=== PATIENT | female | born 1960 | race Two or more races ===

== ENCOUNTER 2020-05-03 18:00 | Inpatient (IN) | payer MEDICARE, OTHER ==
[~2020-05-03] VITALS: Ht 165.1 cm; Wt 75.7 kg
[2020-05-03] MEDS ORDERED: MELO-107 MT (20:29)
[2020-05-03] MEDS ORDERED: CLON2TAB11 MT (20:29)
[2020-05-03] MEDS ORDERED: GABA-532 PO (20:29)
[2020-05-03] MEDS ORDERED: FLUC100T8 MT (20:29)
[2020-05-03] MEDS ORDERED: METH500T6 MT (20:29)
[2020-05-03] MEDS ORDERED: PREG150C46 MT (20:29)
[2020-05-03] MEDS ORDERED: IBUP-1955 MT (20:29)
[2020-05-03] MEDS ORDERED: DICL100G34 TP (20:29)
[2020-05-03] MEDS ORDERED: LORAZEPAM 0.5 MG TABLET PO PRN (20:30)
[2020-05-03] MEDS ORDERED: TEMAZEPAM 7.5 MG CAPSULE PO PRN (20:30)
[2020-05-03] MEDS ORDERED: MAG HYDROX/AL HYDROX/SIMETH 30 ML UDC PO PRN (20:30)
[2020-05-03] MEDS ORDERED: MAGNESIUM HYDROXIDE 30 ML UDC PO PRN (20:30)
[2020-05-03] MEDS ORDERED: BLOOD SUGAR DIAGNOSTIC 1 EACH STRIP IN ONE (20:30)
[2020-05-03] MEDS ORDERED: ACETAMINOPHEN 325 MG TABLET PO PRN (20:30)
[2020-05-03] MEDS ORDERED: TIZA4CAP PO (20:31)
[2020-05-03] MEDS ORDERED: DULO20CA PO (20:33)
[2020-05-03 21:00] VITALS: BP 125/70
--- NOTE | 2020-05-03 23:09 | NUR ---
ADMISSION NOTES: ADMITTED THIS 59Y/O FEMALE PATIENT AD[place] [facility] [place]ADMITTED TO [facility] 5150 HOLD DTO, PER HOLD DTO AND INCREASINGLY PARANOID THE PAST WEEK HAS BEEN LEAVING VOICE MAIL MESSAGE ON MOTHER,S PHONE THREATING AND DEMENDING MONEY MAKING COMMENTS OR YOU WILL BY THE HANDS OF ME ,,UPON FACE TO FACE ASSESSMENT PATIENT IS A&O X 3, FLAT AFFECT , BLUNTED AFFECT, GUARDED ,UNCOOPERTIVE ,ANXIOUS ,PARANOID, ANXIOUS ,DISHELVED, DEPREESED ,POOR HYGINE ,EASILY AGITATED, POOR EYE CONTACT ,DENIES SI /HI AT THIS TIME, PT. IS POOR HISTORIAN, POOR INSIGHT ,POOR JUDGEMENT , PT. REFUSED TO SIGNS ADMISSION CONSENT PAPERS, DUE TO MENTAL STATUS , PT.REFUSED SHOWER AND REFUSED CHANGE TO THE HOSPITAL GOWN, DUE TO MENTAL STATUS , PT. REFUSED FULL BODY SKIN ASSESSMENT AND PICTURES TAKEN, AND REFUSED FLU VACCINE, ENCOURAGED X3 RISKS BENEFITS EXPLINED , PT. STRONGLY REFUSED ,BOTH MD AWARE AND NOTIFIED OF THE ADMISSION, BELONGINGS CONTRABAND WERE DONE ,PT. RIGHTS DISCUSS BY [employer] ACCOUNTS SUPERVISOR , PROVIDE THE PT. WITH HANDBOOK, AND MEDICATIONS GUIDE, ENVIRONMENTAL SAFETY CHECK DONE, ENCOURAGED PT. VERBALIZED ANY FEELING CONCERN TO STAFF, ORIENT TO UNIT POLICY, NO ACUTE DISTRESS NOTED,VITAL SIGNS WNL ,DENIES ANY PAIN AT THIS TIME,WILL CONTINUE TO MONITOR FOR Q15 SAFETY AND BEHAVIOR.
[2020-05-03] MEDS ORDERED: IBUPROFEN 600 MG TABLET PO PRN (23:30)
--- NOTE | 2020-05-04 02:06 | NUR ---
RN NOTES: PT. REFUSED MRSA NARES SWAB ,REFUSED SKIN ASSESSMENT , ENCOURAGED X3 RISKS AND BENFITS EXPLINED ,PT. STRONGLY REFUSED, PT. BEHAVIOR UNCOOPRTIVE AT TIS TIME,WILL CONTIUITY WITH CARE
[2020-05-04] MEDS ORDERED: TIZANIDINE HCL 4 MG TABLET PO PRN (03:00)
[2020-05-04 08:00] VITALS: BP 91/62
[2020-05-04] MEDS ORDERED: TEMAZEPAM 15 MG CAPSULE PO PRN (08:00)
[2020-05-04 08:29] LABS: ALBUMIN 3.4 g/dL (3.4-5.0); BILIRUBIN,TOTAL 0.7 mg/dL (0.2-1.0); CALCIUM, SERUM 8.5 mg/dL (8.5-10.1); CREATININE 0.8 mg/dL (0.6-1.3); POTASSIUM 3.4 mmol/L (3.5-5.1); TOTAL PROTEIN, SERUM 6.4 g/dL (6.4-8.2)
[2020-05-04] MEDS: MELOXICAM 7.5 MG TABLET PO SCH (08:29)
[2020-05-04] MEDS: METHOCARBAMOL (500MG) 500 MG TABLET PO SCH ×4 (08:29→21:02)
[2020-05-04] MEDS: GABAPENTIN 100 MG CAPSULE PO SCH ×3 (08:29→17:23)
[2020-05-04] MEDS ORDERED: DICLOFENAC TOPICAL 100 GM GEL..GM. TP SCH ×2 (09:00)
[2020-05-04] MEDS ORDERED: POTASSIUM CHLORIDE 20 MEQ TAB.PRT.SR PO ONE (09:30)
[2020-05-04] MEDS: LORAZEPAM 1 MG TABLET PO PRN (10:04)
[2020-05-04 16:00] VITALS: BP 119/69
[2020-05-04 20:20] VITALS: BP 92/59
[2020-05-05] MEDS: LORAZEPAM 1 MG TABLET PO PRN ×3 (06:12→12:01)
[2020-05-05 08:00] VITALS: BP 92/58
[2020-05-05] MEDS: GABAPENTIN 100 MG CAPSULE PO SCH ×3 (08:19→17:24)
[2020-05-05] MEDS: METHOCARBAMOL (500MG) 500 MG TABLET PO SCH ×4 (08:19→21:32)
[2020-05-05] MEDS: MELOXICAM 7.5 MG TABLET PO SCH (08:19)
--- NOTE | 2020-05-05 10:32 | NUR ---
FAMILY CONTACT: HOPE received a call from pts mother Lin ([phone]) stating that she fears for her safety as pt becomes aggressive with her and has threatened her life. Mother states that pt lives in her own apartment but in the same apartment complex that mother lives in and owns. Mother states she is pts landlord and pt is on section 8 and is disabled. SW confirmed that pt does pay rent and SW explained that she cannot refuse for pt to return to her own apartment as she does pay rent and is on section 8 housing and has not given an eviction notice to pt. SW explained that there are section 8 housing laws that protect pt from being evicted as also informed her that of now pt has been compliant with her monthly payments. Mother states that pt does not take medication at home and becomes aggressive when pt does not get her way. Mother also stated that pt is delusional and paranoid and believes people are trying to hurt her and that is when she becomes aggressive. SW explained that pt cannot be forced to take medication once she is discharged from the hospital and also stated that pt needs to be connected to a mental health team to assist her with her noncompliance. Mother states that pt needs to go to a treatment center and SW explained that treatment centers are designed for people who are currently struggling with an addiction. Pts mother stated that pt does not use drugs or alcohol. SW provided pts mother with insight and education on pts current mental health symptoms and diagnosis and also explained that pt will be discharged back home once stable for discharge. Mother agreed.
[2020-05-05] MEDS ORDERED: FLUCONAZOLE (100 MG) 100 MG TABLET PO ONE (11:30)
--- NOTE | 2020-05-05 12:01 | NUR ---
RN NOTE:PATIENT C/O ANXIETY MEDICATED WITH ATIVAN 1MG PO X1.
--- NOTE | 2020-05-05 12:06 | NUR ---
INITIAL DISCHARGE PLAN: Pt will be discharged back to her home [address] [place] [address]. HOPE will help form a safe and proper discharge in collaboration with .
[2020-05-05 16:00] VITALS: BP 95/54
[2020-05-05 20:34] VITALS: BP 94/54
[2020-05-05] MEDS: QUETIAPINE FUMARATE 100 MG TABLET PO SCH (22:49)
[2020-05-06] MEDS: LORAZEPAM 1 MG TABLET PO PRN ×2 (06:48→12:25)
--- NOTE | 2020-05-06 06:49 | NUR ---
GPS RN NOTE: ANXIETY PT C/O ANXIETY REQUESTED ATIVAN, VSS, ADMIN ATIVAN 1MG PRN @ 0648, WILL REASSESS AND CONTINUE TO MONITOR Q15MIN FOR SAFETY AND BEHAVIOR.
[2020-05-06 08:00] VITALS: BP 103/72
[2020-05-06] MEDS: METHOCARBAMOL (500MG) 500 MG TABLET PO SCH ×4 (08:51→20:50)
[2020-05-06] MEDS: GABAPENTIN 100 MG CAPSULE PO SCH ×3 (08:51→17:49)
[2020-05-06] MEDS: MELOXICAM 7.5 MG TABLET PO SCH (08:52)
[2020-05-06] MEDS: QUETIAPINE FUMARATE 100 MG TABLET PO SCH ×2 (08:52→17:49)
[2020-05-06 16:00] VITALS: BP 100/67
[2020-05-06 21:05] VITALS: BP 96/47
[2020-05-07] MEDS: LORAZEPAM 1 MG TABLET PO PRN ×3 (06:49→23:40)
[2020-05-07 08:00] VITALS: BP 108/62
[2020-05-07] MEDS: QUETIAPINE FUMARATE 100 MG TABLET PO SCH ×2 (08:11→16:01)
[2020-05-07] MEDS: GABAPENTIN 100 MG CAPSULE PO SCH ×3 (08:12→16:01)
[2020-05-07] MEDS: METHOCARBAMOL (500MG) 500 MG TABLET PO SCH ×4 (08:13→21:00)
[2020-05-07] MEDS: MELOXICAM 7.5 MG TABLET PO SCH (08:13)
[2020-05-07 16:00] VITALS: BP 99/59
[2020-05-07 20:03] VITALS: BP 102/53
[2020-05-07 20:34] VITALS: BP 102/53
--- NOTE | 2020-05-07 21:18 | NUR ---
GPS RN NOTE: MEDICATION REFUSAL PATIENT REUSED TO TAKE ROBAXIN 500 MG SCHEDULED, STATED," I TOOK IT ALREADY SO MANY TIMES, I DON'T NEED IT TONIGHT." DESPITE OF RISKS & BENEFIT EXPLANATIONS PATIENT CONTINUED TO REFUSE ROBAXIN X 3. WILL CONTINUE TO MONITOR.
--- NOTE | 2020-05-07 23:43 | NUR ---
GPS RN NOTE: ANXIETY PATIENT VERBALIZED OF FEELING ANXIOUS, RESTLESS & REQUESTED TO GET ATIVAN. PRN ATIVAN 1 MG PO GIVEN ORDERED. WILL CONTINUE TO MONITOR FOR ANY CHANGES.
[2020-05-08] MEDS: LORAZEPAM 1 MG TABLET PO PRN ×3 (06:52→20:07)
--- NOTE | 2020-05-08 06:54 | NUR ---
GPS RN NOTE: ANXIETY PATIENT VERBALIZED OF FEELING ANXIOUS, RESTLESS & REQUESTED TO GET ATIVAN. PRN ATIVAN 1 MG PO GIVEN ORDERED. WILL ENDORSE TO AM RN TO MONITOR FOR ANY CHANGES.
[2020-05-08] MEDS: QUETIAPINE FUMARATE 100 MG TABLET PO SCH ×2 (08:38→16:20)
[2020-05-08] MEDS: MELOXICAM 7.5 MG TABLET PO SCH (08:38)
[2020-05-08] MEDS: GABAPENTIN 100 MG CAPSULE PO SCH ×3 (08:38→16:20)
[2020-05-08] MEDS: METHOCARBAMOL (500MG) 500 MG TABLET PO SCH ×4 (08:38→21:04)
[2020-05-08 08:47] VITALS: BP 111/59
--- NOTE | 2020-05-08 09:00 | NUR ---
RN NOTE- PT VISIBLE ON UNIT FLAT AFFECT CALM DIRECTABLE FOCUS ON DC, MED COMPLIANT, PO INTAKE GOOD
--- NOTE | 2020-05-08 13:01 | NUR ---
RN NOTE- C/O ANXIETY. ATIVAN 1 MG GIVEN
[2020-05-08 16:12] VITALS: BP 103/69
[2020-05-08 20:05] VITALS: BP 101/65
--- NOTE | 2020-05-08 20:07 | NUR ---
RN NOTES: ANXIETY PT.C/O FEELING ANXIOUS ,ATIVAN 1 MG PO PRN GIVEN PER PT. REQUEST,WILL CONTINUE TO MONITOR.
[2020-05-09] MEDS: LORAZEPAM 1 MG TABLET PO PRN ×2 (06:33→15:51)
--- NOTE | 2020-05-09 06:34 | NUR ---
RN NOTES: ANXIETY PT.C/O FEELING ANXIOUS ,ATIVAN 1 MG PO PRN GIVEN PER PT. REQUEST,WILL CONTINUE TO MONITOR.
[2020-05-09 08:42] VITALS: BP 111/57
[2020-05-09] MEDS: METHOCARBAMOL (500MG) 500 MG TABLET PO SCH ×4 (08:53→20:31)
[2020-05-09] MEDS: MELOXICAM 7.5 MG TABLET PO SCH (08:53)
[2020-05-09] MEDS: GABAPENTIN 100 MG CAPSULE PO SCH ×3 (08:53→17:33)
[2020-05-09] MEDS: SERTRALINE HCL 50 MG TABLET PO SCH (08:53)
[2020-05-09] MEDS: QUETIAPINE FUMARATE 100 MG TABLET PO SCH ×2 (08:53→17:35)
--- NOTE | 2020-05-09 15:52 | NUR ---
GPS/RN-NOTES PATIENT REQUESTING ATIVAN FOR ANXIETY. ATIVAN 1MG P.O GIVEN PRN ORDER.
[2020-05-09 16:16] VITALS: BP 94/56
[2020-05-09 21:02] VITALS: BP 101/62
[2020-05-10] MEDS: LORAZEPAM 1 MG TABLET PO PRN ×2 (06:16→14:06)
--- NOTE | 2020-05-10 06:17 | NUR ---
RN NOTES: ANXIETY PT.C/O FEELING ANXIOUS ,ATIVAN 1 MG PO PRN GIVEN PER PT. REQUEST,WILL CONTINUE TO MONITOR.
[2020-05-10 08:00] VITALS: BP 100/64
[2020-05-10] MEDS: MELOXICAM 7.5 MG TABLET PO SCH (08:22)
[2020-05-10] MEDS: SERTRALINE HCL 50 MG TABLET PO SCH (08:22)
[2020-05-10] MEDS: QUETIAPINE FUMARATE 100 MG TABLET PO SCH ×2 (08:22→16:13)
[2020-05-10] MEDS: GABAPENTIN 100 MG CAPSULE PO SCH ×3 (08:22→16:13)
[2020-05-10] MEDS: METHOCARBAMOL (500MG) 500 MG TABLET PO SCH ×4 (08:27→21:13)
--- NOTE | 2020-05-10 09:00 | NUR ---
RN NOTE- PT IN ROOM AND IN HALLS VISIBLE ON UNIT ALERT ORIENTED TO PERSON PLACE TIME AND SITUATION MED COMPLIANT NEEDS ATTENDED DENIES ALL
--- NOTE | 2020-05-10 14:06 | NUR ---
RN NOTE- PT ANXIOUS. REQUESTING PRN. ATIVAN 1 MG GIVEN
[2020-05-10 16:00] VITALS: BP 118/69
[2020-05-10 20:00] VITALS: BP 91/42
[2020-05-11 06:18] VITALS: BP 110/60
[2020-05-11] MEDS: LORAZEPAM 1 MG TABLET PO PRN ×3 (06:23→20:38)
--- NOTE | 2020-05-11 06:23 | NUR ---
GPS RN NOTE: ANXIETY PT C/O OF ANXIETY, ADMIN PRN ATIVAN @ 0623, VSS, BP: 110/60, HR: 57, WILL REASSESS AND CONTINUE TO MONITOR Q15MIN FRO SAFETY AND BEHAVIOR
[2020-05-11 08:00] VITALS: BP 118/59
[2020-05-11] MEDS: METHOCARBAMOL (500MG) 500 MG TABLET PO SCH ×4 (08:28→20:39)
[2020-05-11] MEDS: QUETIAPINE FUMARATE 100 MG TABLET PO SCH ×2 (08:28→16:10)
[2020-05-11] MEDS: MELOXICAM 7.5 MG TABLET PO SCH (08:28)
[2020-05-11] MEDS: SERTRALINE HCL 50 MG TABLET PO SCH (08:28)
[2020-05-11] MEDS: GABAPENTIN 100 MG CAPSULE PO SCH ×3 (08:29→16:10)
--- NOTE | 2020-05-11 13:09 | NUR ---
RN-CO: ATIVAN GIVEN FOR C/O ANXIETY.
[2020-05-11 16:00] VITALS: BP 93/60
[2020-05-11 20:26] VITALS: BP 91/63
--- NOTE | 2020-05-12 00:34 | NUR ---
RN Note: Patient refused her scheduled Robaxin 500mg PO at 21:00.Requested and given Ativan 1 mg PO with good effect.
[2020-05-12] MEDS: LORAZEPAM 1 MG TABLET PO PRN ×3 (06:10→22:12)
--- NOTE | 2020-05-12 06:14 | NUR ---
RN note: patient c/o anxiety ,requested and given Ativan 1 mg PO.
[2020-05-12 08:00] VITALS: BP 111/82
[2020-05-12] MEDS: SERTRALINE HCL 50 MG TABLET PO SCH (08:51)
[2020-05-12] MEDS: GABAPENTIN 100 MG CAPSULE PO SCH ×3 (08:51→17:23)
[2020-05-12] MEDS: MELOXICAM 7.5 MG TABLET PO SCH (08:51)
[2020-05-12] MEDS: QUETIAPINE FUMARATE 100 MG TABLET PO SCH ×2 (08:52→17:25)
[2020-05-12] MEDS: METHOCARBAMOL (500MG) 500 MG TABLET PO SCH ×4 (08:52→21:00)
[2020-05-12 16:00] VITALS: BP 108/55
[2020-05-12 21:44] VITALS: BP 97/65
--- NOTE | 2020-05-12 21:46 | NUR ---
GPS RN NOTE: PT. REFUSED ROBAXIN. STATED " NO THANKS." WILL CONTINUE TO MONITOR.
--- NOTE | 2020-05-12 22:16 | NUR ---
GPS RN NOTE: ANXIETY PT. C/O OF BEING ANXIOUS. ADMINISTERED ATIVAN. WILL CONTINUE TO MONITOR
[2020-05-13] MEDS: LORAZEPAM 1 MG TABLET PO PRN (06:56)
--- NOTE | 2020-05-13 06:58 | NUR ---
GPS RN NOTE: ANXIETY PT. C/O OF BEING ANXIOUS. ADMINISTERED ATIVAN. WILL CONTINUE TO MONITOR
[2020-05-13 08:00] VITALS: BP 111/76
[2020-05-13] MEDS: SERTRALINE HCL 50 MG TABLET PO SCH (08:06)
[2020-05-13] MEDS: MELOXICAM 7.5 MG TABLET PO SCH (08:07)
[2020-05-13] MEDS: METHOCARBAMOL (500MG) 500 MG TABLET PO SCH (08:07)
[2020-05-13] MEDS: GABAPENTIN 100 MG CAPSULE PO SCH (08:07)
[2020-05-13] MEDS: QUETIAPINE FUMARATE 100 MG TABLET PO SCH (08:15)
--- NOTE | 2020-05-13 08:40 | NUR ---
[facility]OPE Discharge Note: Patient will be discharged home [address] [place] [address] ([phone]). Transportation is provided through [facility] (agreement is attached to chart). Patient presents alert and oriented x4, is aware and agreeable with her discharge plan and denies suicidal or homicidal ideation. Patient presents with appropriate mood and congruent affect. Patient will be following up with her primary care physician Dr. Tammy Alvarado [address] , [place] [address] ([phone]) and has a follow up appointment scheduled on May 21, 2020 at 1PM. Spoke with Connie senior risk manager at the clinic (ext. [phone]) who stated that they will provide a referral for outpatient psychiatrist and monitor the patients psychotropic medications. Patients Lin gross ([phone]) is made aware and is agreeable with discharge plan. Addendum: 05/13/20 at 0841 by HOPE SMITH Disregard discharge note
--- NOTE | 2020-05-13 08:41 | NUR ---
SW Family Contact: This program writer spoke with patient's boyfriend Murray ([phone]) who stated he will hot die picker pt at 11AM.
--- NOTE | 2020-05-13 08:42 | NUR ---
Discharge Note: Patient will be discharged home [address] [place] [address] ([phone]). Patients boyfrienariana Gao ([phone]) will cook pickled meat patient at 11AM. Patient presents alert and oriented x4, is aware and agreeable with her discharge plan and denies suicidal or homicidal ideation. Patient presents with appropriate mood and congruent affect. Patient will be following up with her primary care physician Dr. Tammy Alvarado [address] [place] [address], [place] [address] ([phone]) and has a follow up appointment scheduled on May 21, 2020 at 1PM. Spoke with Connie international marketing manager at the clinic (ext. [phone]) who stated that they will provide a referral for outpatient psychiatrist and monitor the patients psychotropic medications. Patients motherLin ([phone]) is made aware and is agreeable with discharge plan.
--- NOTE | 2020-05-13 10:00 | NUR ---
RN-CO: PATIENT IS ALERT AND ORIENTED, X4, ABLE TO MAKE NEEDS KNOWN WITH STEADY GAIT. SHE REMAINS CALM AND COOPERATIVE TO CARE. SHE DENIES SI/HI. DENIES AH/VH. DR AUSTIN WROTE HER PRESCRIPTIONS AND ORDERED TO DISCHARGE PATIENT AND DISCONTINUE HOLD, NOTED AND CARRIED OUT. SHE IS MEDICALLY CLEARED FOR DISCHARGE BY DR DM SALGADO. I EXPLAINED THE PRESCRIPTIONS AND DISCHARGE PAPERS TO THE PATIENT INCL HER APPOINTMENT TO HER PRIMARY DOCTOR ON May AT 1:00 PM AND SHE VERBALIZED UNDERSTANDING. SHE REFUSED SKIN CHECK AND FLU VACCINE. ALL HER BELONGINGS WILL BE GIVEN BACK TO THE PATIENT. PER PATIENT, HER BOYFRIEND WON WILL PICK HER UP.
--- NOTE | 2020-05-13 11:00 | NUR ---
RN-CO: PATIENT WAS ESCORTED BY STAFF TO HOSPITAL LOBBY.
== END 2020-05-13 11:00 | disposition home or self-care (01) | DRG 885 ==
LOC: GPS 19:50
PROVIDERS: ADMIT Psychiatry & Neurology Psychiatry; ATTEND Student in an Organized Health Care Education/Training Program
DX: F29 Unspecified psychosis not due to a substance or known physiological condition (principal); F23 Brief psychotic disorder; F41.9 Anxiety disorder, unspecified; F32.9 Major depressive disorder, single episode, unspecified; E78.5 Hyperlipidemia, unspecified; E87.6 Hypokalemia; Z86.19 Personal history of other infectious and parasitic diseases
CPT/HCPCS: 36415; 80053-TC; 80061-TC